=== PATIENT | female | born 1980 | race African-American/Black ===

== ENCOUNTER 2019-07-08 13:14 | Emergency (ER) | payer OTHER ==
[~2019-07-08] VITALS: Ht 177.8 cm; Wt 105.7 kg
[2019-07-08 13:57] VITALS: Ht 177.8 cm; Wt 105.7 kg
[2019-07-08 16:32] VITALS: BP 145/68
== END 2019-07-08 16:54 | disposition home or self-care (01) ==
LOC: ED 13:14
DX: S16.1XXA Strain of muscle, fascia and tendon at neck level, initial encounter (principal); S39.012A Strain of muscle, fascia and tendon of lower back, initial encounter; S63.501A Unspecified sprain of right wrist, initial encounter; S20.212A Contusion of left front wall of thorax, initial encounter; M25.561 Pain in right knee; Z90.49 Acquired absence of other specified parts of digestive tract; V43.62XA Car passenger injured in collision with other type car in traffic accident, initial encounter; Y93.89 Activity, other specified; Y92.488 Other paved roadways as the place of occurrence of the external cause; Y99.8 Other external cause status
CPT/HCPCS: Q0092